=== PATIENT | female | born 1995 | race Caucasian/White ===

== ENCOUNTER 2018-02-20 18:15 | Inpatient (IN) | payer OTHER ==
[~2018-02-20] VITALS: Ht 162.6 cm; Wt 127.0 kg
[2018-02-20 20:01] VITALS: BP 116/68
[2018-02-20] MEDS ORDERED: PROMETHAZINE 25 MG/ML VIAL IVP PRN (20:25)
[2018-02-20] MEDS ORDERED: OXYTOCIN 20 UNITS in LACTATED RINGERS 1,000 ML IV SCH (20:25)
[2018-02-20] MEDS ORDERED: OXYTOCIN 10 UNITS/ML VIAL IM PRN (20:25)
[2018-02-20] MEDS ORDERED: CARBOPROST 250 MCG/ML AMP IM PRN (20:25)
[2018-02-20] MEDS ORDERED: NALBUPHINE 10 MG/ML AMP IVP PRN (20:25)
[2018-02-20] MEDS ORDERED: METHYLERGONOVINE 0.2 MG/ML AMP IM PRN (20:25)
[2018-02-20] MEDS ORDERED: MISOPROSTOL 25 MCG TAB VG PRN (20:25)
[2018-02-20] MEDS ORDERED: MISOPROSTOL 25 MCG TAB ONE (20:47)
[2018-02-20 21:04] LABS: BASOPHILS % (AUTO) 0.4 % (0.0-2.0); EOSINOPHILS % (AUTO) 0.4 % (0.0-4.0); HEMATOCRIT 38.9 % (36-48); HEMOGLOBIN 12.7 g/dL (12.0-16.0); LYMPHOCYTES # (AUTO) 2.2 K/uL (2.5-16.5); LYMPHOCYTES % (AUTO) 24.4 % (20.5-51.1); MEAN CORPUSCULAR HEMOGLOBIN 30 pg (27-31); MEAN CORPUSCULAR HGB CONC 33 g/dL (33-37); MEAN CORPUSCULAR VOLUME 90.4 fL (80-94); MONOCYTES # (AUTO) 0.6 K/uL (0.8-1.0); MONOCYTES % (AUTO) 6.8 % (1.7-9.3); NEUTROPHILS # (AUTO) 6.3 K/uL (1.8-7.7); PLATELET COUNT (AUTO) 185 K/uL (140-450); WHITE BLOOD COUNT (AUTO) 9.2 K/uL (4.8-10.8)
[2018-02-20 21:07] LABS: APPEARANCE,URINE CLEAR (CLEAR); BILIRUBIN,URINE NEGATIVE (NEGATIVE); BLOOD, URINE NEGATIVE (NEGATIVE); COLOR,URINE YELLOW (YELLOW); LEUKOCYTE ESTERASE ,URINE NEGATIVE (NEGATIVE); NITRITE, URINE NEGATIVE (NEGATIVE); UGLUCOSE NEGATIVE (NEGATIVE)
[2018-02-20 21:12] LABS: ANION GAP 14.7 (8-16); CREATININE 0.6 mg/dL (0.6-1.3); POTASSIUM 3.7 mmol/L (3.5-5.1)
[2018-02-20 21:19] LABS: ALBUMIN 2.5 g/dL (3.4-5.0); TOTAL BILIRUBIN 0.3 mg/dL (0.0-1.0)
[2018-02-20] MEDS: LACTATED RINGERS 1,000 ML IV SCH (21:22)
[2018-02-21] MEDS: LACTATED RINGERS 1,000 ML IV SCH ×2 (01:00→02:09)
[2018-02-21] MEDS ORDERED: OXYTOCIN 20 UNITS/LR PREMIX 1,000 ML IV ONE (01:13)
[2018-02-21] MEDS ORDERED: PROMETHAZINE 25 MG/ML VIAL ONE (01:19)
[2018-02-21] MEDS ORDERED: NALBUPHINE 10 MG/ML AMP ONE (01:19)
[2018-02-21] MEDS ORDERED: BUPIVACAINE 0.125%/NS PREMIX 250 ML ONE (01:20)
[2018-02-21] MEDS ORDERED: OXYTOCIN 10 UNITS/ML VIAL ONE (08:23)
[2018-02-21] MEDS ORDERED: IBUPROFEN 800 MG TAB PO PRN (09:10)
[2018-02-21] MEDS ORDERED: TEMAZEPAM 15 MG CAP PO PRN (09:10)
[2018-02-21] MEDS ORDERED: HYDROcodone/APAP 5/325 MG 1 TAB TAB PO PRN ×2 (09:10)
[2018-02-21] MEDS ORDERED: DOCUSATE SOD/SENNA 50/8.6 MG 1 TAB PO SCH (21:00)
[2018-02-22 06:45] LABS: HEMATOCRIT 34.5 % (36-48); HEMOGLOBIN 11.2 g/dL (12.0-16.0)
--- NOTE | 2018-02-22 08:33 | NUR ---
PATIENT HAS BEEN SCREENED AND CATEGORIZED HIGH NUTRITION RISK. PATIENT WILL BE SEEN WITHIN 1-2 DAYS OF ADMISSION. 02/21/18 02/22/[address]
--- NOTE | 2018-02-22 14:31 | NUR ---
02/22/18 RD INITIAL ASSESSMENT COMPLETED PLEASE REFER TO NUTRITION ASSESSMENT UNDER CARE ACTIVITY FOR ESTIMATED NUTRITIONAL NEEDS. 1. CONTINUE REGULARDIET TOLERATED 2. PROVIDED PT EDUCATION REGARDING NUTRITION WHILE 3. RD TO FOLLOW-UP 5-7 DAYS, LOW RISK VICTORIA TYLER, RD
[2018-02-23] MEDS ORDERED: IBUP-2217 PO (10:06)
[2018-02-23] MEDS ORDERED: AMPICILLIN 1,000 MG VIAL ONE (14:23)
== END 2018-02-23 23:20 | disposition home or self-care (01) | DRG 560 ==
LOC: MLD 18:15 → MFCC 02-21 13:46
PROVIDERS: ADMIT Obstetrics & Gynecology; ATTEND Obstetrics & Gynecology
PROC: 3E0234Z Introduction of Serum, Toxoid and Vaccine into Muscle, Percutaneous Approach (ICD-10-PCS; principal; 2018-02-21)
PROC: 10E0XZZ Delivery of Products of Conception, External Approach (ICD-10-PCS; 2018-02-21)
PROC: 3E0R3BZ Introduction of Anesthetic Agent into Spinal Canal, Percutaneous Approach (ICD-10-PCS; 2018-02-21)
PROC: 00HU33Z Insertion of Infusion Device into Spinal Canal, Percutaneous Approach (ICD-10-PCS; 2018-02-21)
DX: O99.214 Obesity complicating childbirth (principal); Z68.42 Body mass index [BMI] 45.0-49.9, adult; Z37.0 Single live birth; Z3A.39 39 weeks gestation of pregnancy; Z23 Encounter for immunization; Z90.49 Acquired absence of other specified parts of digestive tract; Z83.3 Family history of diabetes mellitus
CPT/HCPCS: 36415; 51702; 59200; 59409; 80053; 81003; 85018; 85025; 86592; 86886; 86900; 86901; 90715; J0290; J2300; J2550; J2590; J3490; J7120